=== PATIENT | female | born 1950 | race Caucasian/White ===

== ENCOUNTER → 2016-06-04 | Day surgery (SDC) | payer OTHER ==
[~2016-06-04] MED LIST: BUPIVACAINE/EPINEPHRINE 0.5% PF 30 ML VIAL ONE; HEPARIN SODIUM - IV 10,000 UNITS/10 ML VIAL ONE; LACTATED RINGER'S 1000 ML INJ 1,000 ML ONE; MIDAZOLAM HCL 2 MG/2 ML VIAL ONE; PROPOFOL 500 MG/50 ML BTL IV ONE; SODIUM CHLORIDE 0.9% 20 ML VIAL ONE; ceFAZolin 2 GM PREMIX 50 ML ONE
--- NOTE | 2016-06-04 11:46 | TN ---
cc: AMPARO WRIGHT DATE OF SURGERY: 06/04/2016 PREOPERATIVE DIAGNOSIS Clinical stage III right breast cancer, triple negative. POSTOPERATIVE DIAGNOSIS Clinical stage III right breast cancer, triple negative. PROCEDURE PERFORMED Left subclavian Akskss-V-Brgs placement. SURGEON Amparo Wright ANESTHESIA TIVA. INDICATION The patient is a 65-year-old female with clinical stage III right breast cancer and biopsy-proven [place] metastases as well as multiple right breast masses. Her tumor is triple negative and she would benefit from neoadjuvant chemotherapy and now presents for Ukdjye-L-Reiy placement. FINDINGS At the time of surgery normal left subclavian anatomy was identified. PROCEDURE After informed consent was obtained and site verification was performed, the patient was brought to the major operating room where she was given IV sedation. The right and left chest and neck were prepped and draped in sterile fashion. She received a single dose of IV Ancef and sequential compression hose were placed. The left subclavian vein was accessed via percutaneous cannulation and a J-wire advanced easily into the central circulation via Seldinger technique where its position was confirmed with fluoroscopy. Local analgesia was applied around the wire and both sharp and electrocautery dissection was performed to create a subcutaneous pocket for the reservoir. The catheter was measured out at 30 cm and cut off. A peel-away sheath and introducer were advanced over the wire and the introducer and wire were removed. The catheter was then advanced through the peel-away sheath which was then removed. Fluoroscopy demonstrated good catheter tip position at the atriocaval junction at 19 cm and the catheter was cut off at that point and secured to the reservoir. The reservoir was noted to flush and aspirate easily and it was secured to the chest wall with two 2-0 Prolene sutures. Good hemostasis was noted and the wound was closed using interrupted 3-0 Vicryl subcutaneous sutures and a 4-0 Monocryl subcuticular suture. Steri-Strips and a sterile dressing were applied. The patient tolerated the procedure well with minimal blood loss and she was brought to the recovery room in good condition where chest x-ray is pending at the time of this dictation. MD LENORE French/ANDREINA /11:27 AM 11:38 AM
== END | disposition home or self-care (01) ==
LOC: ESDC 08:17
PROVIDERS: ATTEND Surgery
DX: C50.911 Malignant neoplasm of unspecified site of right female breast (principal)
CPT/HCPCS: 00532; 36561; 76000; C1788; J0690; J1644; J2250; J3010; J7120